=== PATIENT | female | born 1945 | race Caucasian/White ===

== ENCOUNTER 2018-10-08 14:01 | Inpatient (IN) ==
[2018-10-08] MEDS ORDERED: Haloperidol Lactate 5 MG/ML VIAL IVP PRN (15:36)
[2018-10-08] MEDS: *HR* Morphine 2 MG/ML SYRINGE IVP PRN (17:17)
--- NOTE | 2018-10-08 19:01 | Internal Med History&Physical ---
Date of Encounter: 10/08/18 Time of Encounter: 18:30 Assessment and Plan (1) CVA (cerebral vascular accident) Current visit: Yes Status: Acute Comfort measures have been initiated. No further workup will be done. Qualifiers: CVA mechanism: stenosis Precerebral and cerebral artery: middle cerebral artery Laterality of affected vessel: right Qualified Code(s): I63.511 - Cerebral infarction due to unspecified occlusion or stenosis of right middle cerebral artery Internal Medicine - H&P: HPI Chief complaint: CVA Admitted From: Direct Admit History of present illness: Ms. Cope is a 72 year old female who [facility] experiencing a right MCA ischemic infarct. Thrombectomy was done with no significant neurologic recovery. Terminal extubation was done 10/04/2018 without demise. Hospice services were chosen and she was admitted to [facility] for [facility] hospice care. Past Med Surg Social Fam HX - Past Medical History Medical history: arthritis, diabetes, hyperlipidemia, hypertension, myocardial infarction, other Additional medical history: diabetic neuropathy Psychiatric history: no psych history - Past Surgical History Additional surgical history: Ear, Tubal Ligation, - Social History Smoking Status: Former smoker Smokeless Tobacco Status: No Alcohol use: none Drug use: none Internal Medicine - H&P: Meds traMADol [Ultram] 50 mg PO BID PRN #6 tablet 01/26/16 [Rx] Meclizine [Antivert] 12.5 mg PO TID #30 tablet 11/10/17 [Rx] Diclofenac Sodium 4 gm TP QID PRN #100 gel..gram. MDD 16 12/12/17 [Rx] Lisinopril [Zestril] 10 mg PO DAILY 12/12/17 [History] Allergy/AdvReac Type Severity Reaction Status Date / Time Sulfa (Sulfonamide Allergy Rash Verified 08/11/16 16:10 Antibiotics) venlafaxine [From Effexor] Allergy Redness of Verified 08/11/16 16:10 Skin All Systems PM: A 10-system review of systems was performed and is negative for pertinent findings except as documented above in the HPI. Review of systems: Review of systems unobtainable from the patient. Review of available records show diagnoses of hypertension, DM 2, and hyperlipidemia. No atrial fibrillation was known to be present. - Constitutional Vitals: Temp Pulse Resp BP Pulse Ox 99.5 F 114 18 144/76 91 10/08/18 18:42 10/08/18 18:42 10/08/18 18:42 10/08/18 18:42 10/08/18 18:42 Exam: Gen.: She is a well-developed overweight female lying in bed who does not respond to voice or light touch HEENT: Head is atraumatic and normal cephalic. Eyes: She has slight external drainage in the right eyelashes. The left eye is unremarkable. There is no scleral icterus. Mouth: She does not open her mouth for examination Neck: There is no thyromegaly or adenopathy noted. Heart: Regular with rate approximately 100/m. No murmurs or gallops are heard. Lungs: She has rhonchi in the upper airways. There is no peripheral expiratory wheezing heard. Abdomen: She has a large abdomen. It is nontender to palpation. She has a per iumbilical hernia approximately 7 cm diameter. Extremities: There is no cyanosis edema or clubbing noted. Dorsalis pedis and posttibial pulses are 1-2 over 2 bilaterally. Neurologic: Mental status: She does not respond to voice or light touch. Motor: She does not move her arms or legs spontaneously. She does not withdraw to Babinski testing. She has near flaccid arm tone on passive range of motion. No further neurologic testing is attempted. Skin: Warm and dry
[2018-10-08] MEDS: Acetaminophen 650 MG RECTAL SUPP RC PRN (20:57)
[2018-10-09] MEDS: *HR* Morphine 2 MG/ML SYRINGE IVP PRN ×5 (01:43→23:11)
--- NOTE | 2018-10-09 14:44 | Internal Med Progress Note ---
Date of Encounter: 10/09/18 Time of Encounter: 14:38 - Assessment and plan (1) CVA (cerebral vascular accident) Current Visit: Yes Status: Acute Assessment and plan: October 09. Continue CREATIVE DIRECTOR. Qualifiers: CVA mechanism: stenosis Precerebral and cerebral artery: middle cerebral artery Laterality of affected vessel: right Qualified Code(s): I63.511 - Cerebral infarction due to unspecified occlusion or stenosis of right middle cerebral artery - Subjective Interval history: October 09. No new problems have developed. - Constitutional Vitals: Temp Pulse Resp BP Pulse Ox 97.9 F 103 20 143/81 96 10/09/18 06:40 10/09/18 06:40 10/09/18 06:40 10/09/18 06:40 10/09/18 06:40 Exam: She is resting comfortably in bed and appears in no pain. Heart rate is approximately 104/m. Extremities show no edema. I reviewed her vitals Consult Discharge Plan - Plan Referrals: NONE,PCP [Primary Care Provider] - 1 week
[2018-10-09] MEDS: Atropine 1% Opth Drops 100 DROP/5 ML BOTTLE SL PRN ×2 (17:26→21:56)
[2018-10-09] MEDS: *HR* LORazepam Oral Conc 2 MG/ML SL PRN (20:56)
[2018-10-09] MEDS: Acetaminophen 650 MG RECTAL SUPP RC PRN (20:56)
[2018-10-10] MEDS: *HR* Morphine 2 MG/ML SYRINGE IVP PRN ×3 (05:52→18:17)
[2018-10-10] MEDS: Atropine 1% Opth Drops 100 DROP/5 ML BOTTLE SL PRN ×4 (05:53→20:29)
[2018-10-10] MEDS: Acetaminophen 650 MG RECTAL SUPP RC PRN (15:47)
[2018-10-10] MEDS: *HR* LORazepam Oral Conc 2 MG/ML SL PRN ×2 (18:26→20:30)
--- NOTE | 2018-10-10 19:29 | Internal Med Progress Note ---
Date of Encounter: 10/10/18 Time of Encounter: 14:30 - Assessment and plan (1) CVA (cerebral vascular accident) Current Visit: Yes Status: Acute Assessment and plan: October 09. Continue FINANCIAL SERVICES DIRECTOR. October 10. Continue FINANCIAL SERVICES DIRECTOR. Anticipate survival 2-3 days. Qualifiers: CVA mechanism: stenosis Precerebral and cerebral artery: middle cerebral artery Laterality of affected vessel: right Qualified Code(s): I63.511 - Cerebral infarction due to unspecified occlusion or stenosis of right middle cerebral artery - Subjective Interval history: October 09. No new problems have developed. October 10. No new problems have arisen. - Constitutional Vitals: Temp Pulse Resp BP Pulse Ox 101.5 F H 117 36 130/70 88 10/10/18 18:20 10/10/18 18:20 10/10/18 18:20 10/10/18 18:20 10/10/18 18:20 Exam: She is resting comfortably in bed. She continues to hyperventilate. No significant secretions are heard in her lungs. Extremities show no edema. Consult Discharge Plan - Plan Referrals: NONE,PCP [Primary Care Provider] - 1 week
[2018-10-11] MEDS: Atropine 1% Opth Drops 100 DROP/5 ML BOTTLE SL PRN (04:50)
[2018-10-11] MEDS: *HR* LORazepam Oral Conc 2 MG/ML SL PRN (04:52)
--- NOTE | 2018-10-11 09:26 | Discharge Summary ---
Date of Encounter: 10/11/18 Time of Encounter: 09:23 - Discharge Diagnosis (1) CVA (cerebral vascular accident) Priority: Primary Status: Acute Qualifiers: CVA mechanism: stenosis Precerebral and cerebral artery: middle cerebral artery Laterality of affected vessel: right Qualified Code(s): I63.511 - Cerebral infarction due to unspecified occlusion or stenosis of right middle cerebral artery Hospital course: Ms. Cope is a 73 year old female who was hospitalized at [facility] September 28February after experiencing a right MCA ischemic infarct. Thrombectomy was done with no significant neurologic recovery. Terminal extubation was done 10/04/2018 without demise. Hospice services were chosen and she was admitted to [facility] hospice care. She was admitted to general inpatient hospice. I saw her on October 08 and performed a hospice history and physical. Comfort measures were initiated. She did not regain consciousness. At 0522 on 10/11/2018 she was found to be without pulse or respirations and was pronounced . No resuscitative efforts were done as per advanced directives. - Time Spent with Patient Total time spent providing and/or coordinating discharge services: - Discharge Medications Home Medications: traMADol [Ultram] 50 mg PO BID PRN #6 tablet 01/26/16 [Rx] Meclizine [Antivert] 12.5 mg PO TID #30 tablet 11/10/17 [Rx] Diclofenac Sodium 4 gm TP QID PRN #100 gel..gram. MDD 16 12/12/17 [Rx] Lisinopril [Zestril] 10 mg PO DAILY 12/12/17 [History] Allergies/Adverse Reactions: Allergy/AdvReac Type Severity Reaction Status Date / Time Sulfa (Sulfonamide Allergy Rash Verified 08/11/16 16:10 Antibiotics) venlafaxine [From Effexor] Allergy Redness of Verified 08/11/16 16:10 Skin Date of admission: 10/08/18 14:07 Primary care physician: PCP NONE Consults: 10/08/18 14:50 Consult to Palliative Care [CONS] Routine Comment: Consulting Provider: Palliative Care Keri Reason for Consult: Respite Call Completed: No - Constitutional Vitals: Temp Pulse Resp BP Pulse Ox 101.5 F H 117 36 130/70 88 10/10/18 18:20 10/10/18 18:20 10/10/18 18:20 10/10/18 18:20 10/10/18 18:20 - Patient Status Disposition: - Discharge Instructions Follow Up With: NONE,PCP [Primary Care Provider] - 1 week
== END 2018-10-11 10:05 | disposition expired | DRG 951 ==
LOC: INPPIK 14:07
PROVIDERS: ADMIT Internal Medicine; ATTEND Internal Medicine